=== PATIENT | female | born 1950 | race Caucasian/White ===

== ENCOUNTER 2021-12-19 14:19 | Outpatient (CLI) | payer MEDICARE ==
[~2021-12-19 14:19] MED LIST: ALBU1.257 NEB; CALC-1215 PO; ENOX120D5 SQ; HYDR-4383 PO; METO75TA; MULT1CAP44 PO; ONDA-104 PO; PROC5TAB10 PO; TROL141. TP; XAL0.005OS OP
== END 2021-12-19 23:59 | disposition home or self-care (01) ==
LOC: CARD DIAG 14:19
PROVIDERS: ATTEND Internal Medicine Cardiovascular Disease
DX: I08.8 Other rheumatic multiple valve diseases (principal); E78.5 Hyperlipidemia, unspecified
CPT/HCPCS: 93306

== ENCOUNTER 2022-03-06 14:44 | Outpatient (CLI) | payer MEDICARE | END 2022-03-06 23:59 | disposition home or self-care (01) | LOC: CARD DIAG 14:44 | PROVIDERS: ATTEND Internal Medicine Cardiovascular Disease | DX: I08.3 Combined rheumatic disorders of mitral, aortic and tricuspid valves (principal) | CPT/HCPCS: 93308 ==